=== PATIENT | female | born 1940 | race Caucasian/White ===

== ENCOUNTER 2021-09-06 21:09 | Inpatient (IN) | payer MEDICARE, OTHER ==
[~2021-09-06] VITALS: Ht 165.1 cm; Wt 71.0 kg
[~2021-09-06 21:09] MED LIST: ASPIRIN EC81 MG PO; ATENOLOL25 MG PO; ATORVASTATIN CA10 MG PO; CENTRUM COMPLE1 EACH PO; DIFLUCAN150 MG PO; FERROUS SULFAT325 MG PO; FLAGYL500 MG PO; HYDROXYCHLOROQ200 MG PO; HYZAAR 100-251 EACH PO; LACTINEX1 EACH PO; LEFLUNOMIDE20 MG PO; LEVAQUIN 250MG250 MG PO; LEVAQUIN750 MG PO; METRONIDAZOLE500 MG PO; MOBIC7.5 MG PO; NORVASC 5MG TABL5 MG PO; NORVASC5 MG PO; OMEPRAZOLE40 MG PO; ONDANSETRON HCL4 MG PO; PLAQUENIL200 MG PO; PRILOSEC40 MG PO; SILVADENE20 G1 TOP; TOPROL XL 50 MG50 MG PO; ULTRAM50 MG PO; VALSARTAN-HCTZ1 EAC1 PO
[2021-09-07] LABS: BASOPHIL 1.7 % (0-2); EOSINOPHIL 0.8 % (0-7); HCT 33.4 % (37.0-47.0); HGB 10.6 g/dl (12.5-16.0); LYMPHOCYTE 20.1 % (15-48); MCH 31.4 pg (25.0-31.0); MCHC 31.7 g/dL (32.0-36.0); MCV 98.8 fL (78.0-100.0); MONOCYTE 7.9 % (0-12); MPV 11.1 fL (6.0-9.5); NRBC 0; PLT 145 K/uL (150-400); RBC 3.38 M/uL (4.20-5.40); RDW 15.8 % (11.5-14.0); WBC 6.6 K/uL (4.0-10.5)
[2021-09-07 00:48] LABS: INFLUENZA A NAA NEGATIVE (NEGATIVE)
[2021-09-07 00:49] LABS: CORONAVIRUS 2019 SARS-COV-2 POSITIVE (NEGATIVE)
[2021-09-07 00:50] LABS: ALBUMIN 2.9 g/dL (3.4-5.0); BILIRUBIN - TOTAL 0.5 mg/dL (0.2-1.0); BUN/CREAT RATIO (CALC) 16.5 RATIO; CREATININE 0.97 mg/dL (0.51-0.95); GLOBULIN (CALCULATION) 3.3 g/dL; MAGNESIUM 1.6 mg/dL (1.8-2.4); POTASSIUM 3.6 mmol/L (3.5-5.1); TOTAL PROTEIN 6.2 g/dL (6.4-8.2)
[2021-09-07 06:58] LABS: HCT 34.3 % (37.0-47.0); HGB 10.8 g/dl (12.5-16.0); MCH 31.3 pg (25.0-31.0); MCHC 31.5 g/dL (32.0-36.0); MCV 99.4 fL (78.0-100.0); MPV 10.6 fL (6.0-9.5); RBC 3.45 M/uL (4.20-5.40); RDW 15.9 % (11.5-14.0); WBC 5.7 K/uL (4.0-10.5)
[2021-09-07 07:48] LABS: BUN/CREAT RATIO (CALC) 16.5 RATIO; CREATININE 0.97 mg/dL (0.51-0.95); FT4 (FREE T4) 1.4 ng/dL (0.76-1.46); MAGNESIUM 1.8 mg/dL (1.8-2.4); POTASSIUM 3.4 mmol/L (3.5-5.1)
[2021-09-07 10:22] LABS: BILIRUBIN NEGATIVE (NEGATIVE); BLOOD TRACE-INTACT Ery/uL (NEGATIVE); CLARITY CLEAR (CLEAR); COLOR YELLOW (YELLOW); GLUCOSE (U) NORMAL (NORMAL); LEUKOCYTES 1+ Leu/uL (NEGATIVE); NITRITE NEGATIVE (NEGATIVE); PROTEIN 1+ mg/dL (NEGATIVE); SPECIFIC GRAVITY 1.025 (1.001-1.030); UROBILINOGEN 0.2 mg/dL (0.2-1.0)
[2021-09-07 10:45] LABS: BACTERIA 2+; URINARY RBC RARE; URINARY WBC 20-50
[2021-09-07 18:24] LABS: RETICULOCYTE COUNT 2.9 % (1.0-2.0)
[2021-09-07 19:07] LABS: IRON % SATURATION 19.3 %SAT (20-50)
[2021-09-08 07:20] LABS: BASOPHIL 0.2 % (0-2); EOSINOPHIL 0 % (0-7); HCT 34.7 % (37.0-47.0); HGB 10.9 g/dl (12.5-16.0); LYMPHOCYTE 11.7 % (15-48); MCH 30.8 pg (25.0-31.0); MCHC 31.4 g/dL (32.0-36.0); MONOCYTE 9.2 % (0-12); NEUTROPHIL 78.4 % (41-80); NRBC 0; PLT 181 K/uL (150-400); RBC 3.54 M/uL (4.20-5.40); RDW 15.8 % (11.5-14.0); WBC 6.3 K/uL (4.0-10.5)
[2021-09-08 07:39] LABS: BUN/CREAT RATIO (CALC) 24.6 RATIO; CREATININE 1.14 mg/dL (0.51-0.95); MAGNESIUM 1.8 mg/dL (1.8-2.4); POTASSIUM 4.1 mmol/L (3.5-5.1)
[2021-09-09 07:08] LABS: BUN/CREAT RATIO (CALC) 31.1 RATIO; CREATININE 1.35 mg/dL (0.51-0.95); POTASSIUM 4.7 mmol/L (3.5-5.1)
[2021-09-09] MEDS ORDERED: LASIX20 MG PO (13:15)
[2021-09-09] MEDS ORDERED: CEFDINIR300 MG PO (13:37)
== END 2021-09-09 14:06 | disposition home health service (06) | DRG 291 ==
LOC: FER 21:09 → FMS 09-07 02:01
PROVIDERS: Internal Medicine; Nurse Practitioner Acute Care; ADMIT Internal Medicine
PROC: XW033E5 Introduction of Remdesivir Anti-infective into Peripheral Vein, Percutaneous Approach, New Technology Group 5 (ICD-10-PCS; principal; 2021-09-07)
PROC: 3E0333Z Introduction of Anti-inflammatory into Peripheral Vein, Percutaneous Approach (ICD-10-PCS; 2021-09-07)
PROC: 8E0ZXY6 Isolation (ICD-10-PCS; 2021-09-07)
PROC: B24BZZZ Ultrasonography of Heart with Aorta (ICD-10-PCS; 2021-09-07)
DX: I13.0 Hypertensive heart and chronic kidney disease with heart failure and stage 1 through stage 4 chronic kidney disease, or unspecified chronic kidney disease (principal); I50.33 Acute on chronic diastolic (congestive) heart failure; U07.1 COVID-19; I16.1 Hypertensive emergency; N39.0 Urinary tract infection, site not specified; I69.354 Hemiplegia and hemiparesis following cerebral infarction affecting left non-dominant side; D84.821 Immunodeficiency due to drugs; N18.31 Chronic kidney disease, stage 3a; D63.1 Anemia in chronic kidney disease; M06.9 Rheumatoid arthritis, unspecified; I69.392 Facial weakness following cerebral infarction; D69.6 Thrombocytopenia, unspecified; I25.10 Atherosclerotic heart disease of native coronary artery without angina pectoris; E87.6 Hypokalemia; T37.8X5A Adverse effect of other specified systemic anti-infectives and antiparasitics, initial encounter; K21.9 Gastro-esophageal reflux disease without esophagitis; I48.0 Paroxysmal atrial fibrillation; E88.09 Other disorders of plasma-protein metabolism, not elsewhere classified; Z96.653 Presence of artificial knee joint, bilateral; Z86.73 Personal history of transient ischemic attack (TIA), and cerebral infarction without residual deficits; Z90.49 Acquired absence of other specified parts of digestive tract; Z90.710 Acquired absence of both cervix and uterus; Z79.82 Long term (current) use of aspirin; Z79.899 Other long term (current) drug therapy; Z98.41 Cataract extraction status, right eye; Z98.42 Cataract extraction status, left eye
CPT/HCPCS: 36415; 71045; 71250; 80048; 80053; 81001; 82607; 82728; 82746; 83540; 83550; 83615; 83735; 83880; 84145; 84439; 84443; 84484; 85025; 87088; 93005; 97162; 97166; 97530-GP; C9399; G0378; J0696; J1100; J1650; J1940; J3475; J7050; U0002